=== PATIENT | female | born 1970 | race Caucasian/White ===

== ENCOUNTER 2020-01-29 19:10 | Emergency (ER) | payer BC, OTHER ==
[~2020-01-29] VITALS: Ht 162.6 cm; Wt 56.7 kg
--- NOTE | 2020-01-29 19:15 | NUR ---
ED Nurse Note: patient wheelchair to ED from home c/o fever x 3 days. highest temp 101.4F. Motrin administer 1630 at home current temp 98.1F oral. denies SOB, cough or chest pain. Assisted into bed; attached to monitor; vitals stable. ekg and imaging completed at bedside. all safety measures met.
[2020-01-29 19:30] VITALS: BP 95/54
--- NOTE | 2020-01-29 19:30 | NUR ---
ED Nurse Note: iv access established. blood, initial lactic, blood cultures, urine, covid swab collected; sent down to lab.
--- NOTE | 2020-01-29 19:35 | Emergency Room Report ---
History of Present Illness General Chief Complaint: Fever Source: Patient Present Illness HPI Disclaimer: Please note that this report is being documented using [email or web address] technology. This can lead to erroneous entry secondary to incorrect interpretation by the dictating instrument. 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 Symptoms present for the past 3 to 4 days. Reports intermittent fevers as high as 105 axillary that are responding to Tylenol Motrin but persist kidney return. 2 days ago she had several episodes of nausea and diaphoresis throughout the night however this is now resolved. Reports decreased appetite but is able to eat and drink. Denies headaches, visual changes, sore throat, nasal congestion, chest pain, shortness of breath, cough, any further abdominal pain or vomiting or diarrhea. Patient has no feeling below her umbilicus and therefore does not know whether or not she has dysuria but she has not noticed hematuria. Denies skin rash or breakdown. PMH: Reviewed PSH: Fixation of the thoracic spine Allergies: Reviewed Social Hx: Reviewed Allergies: Coded Allergies: No Known Allergies (Unverified , 01/29/20) COVID-19 Screening Contact w/high risk pt: No Experienced COVID-19 symptoms?: Yes COVID-19 Testing performed SEAMLESS TUBE DRAWER: No Review of Systems All Other Systems: negative except mentioned in HPI Physical Exam Vital Signs Date Time Temp Pulse Resp B/P (MAP) Pulse Ox O2 Delivery O2 Flow Rate FiO2 01/29/20 19:13 98.1 72 18 95/54 (68) 100 Room Air General: Awake and alert, no acute distress HEENT: NC/AT. EOMI. PERRLA. Moist mucous membranes. Cardiovascular: RRR. S1 and S2 normal. No murmur appreciated Resp: Normal work of breathing. No cough, wheezing or crackles appreciated Abdomen: Abdomen is soft, nondistended. Nontender Skin: Intact. No abrasions, laceration or rash over the exposed skin MSK: Normal tone and bulk. No spontaneous movement of the lower extremities. No obvious deformity. Neuro: Awake and alert. Mentating appropriately. Pleasant Medical Decision Making Diagnostic Impression: Primary Impression: UTI (urinary tract infection) ER Course Is a 49-year-old female presenting for evaluation of persistent fevers over the past 3 to 4 days. Differential includes was not limited to sepsis, viral syndrome, COVID-19 infection, pneumonia, UTI, intra-abdominal infection, yajaira ctrolyte abnormalities, dehydration among others. Broad labs and cultures were sent. Urinalysis concerning for acute urinary tract infection and the patient was treated with 1 dose IV Rocephin. She will be discharged on Bactrim. Remainder of labs are largely within normal limits aside from mildly elevated white count. Lactate within normal limits, COVID-19 negative. Chest x-ray shows no consolidation or other acute findings. She remains afebrile with stable vital signs and appropriate for outpatient follow-up. We will follow-up with PMD on an outpatient basis. Instructed to return with new or worsening symptoms. Family and patient understand and agree with this treatment plan. Laboratory Tests Test 01/29/20 19:30 01/29/20 20:00 White Blood Count 14.6 K/UL (4.8-10.8) H Red Blood Count 4.16 M/UL (4.20-5.40) L Hemoglobin 11.8 G/DL (12.0-16.0) L Hematocrit 36.4 % (37.0-47.0) L Mean Corpuscular Volume 87 FL (80-99) Mean Corpuscular Hemoglobin 28.3 PG (27.0-31.0) Mean Corpuscular Hemoglobin Concent 32.4 G/DL (32.0-36.0) Red Cell Distribution Width 13.6 % (11.6-14.8) Platelet Count 220 K/UL (150-450) Mean Platelet Volume 9.3 FL (6.5-10.1) Neutrophils (%) (Auto) % (45.0-75.0) Lymphocytes (%) (Auto) % (20.0-45.0) Monocytes (%) (Auto) % (1.0-10.0) Eosinophils (%) (Auto) % (0.0-3.0) Basophils (%) (Auto) % (0.0-2.0) Differential Total Cells Counted 100 Neutrophils % (Manual) 85 % (45-75) H Lymphocytes % (Manual) 10 % (20-45) L Monocytes % (Manual) 3 % (1-10) Eosinophils % (Manual) 0 % (0-3) Basophils % (Manual) 2 % (0-2) Band Neutrophils 0 % (0-8) Platelet Estimate Adequate Platelet Morphology Normal Red Blood Cell Morphology Normal Sodium Level 137 MMOL/L (136-145) Potassium Level 3.3 MMOL/L (3.5-5.1) L Chloride Level 102 MMOL/L (98-107) Carbon Dioxide Level 26 MMOL/L (21-32) Anion Gap 9 mmol/L (5-15) Blood Urea Nitrogen 12 mg/dL (7-18) Creatinine 0.9 MG/DL (0.55-1.30) Estimated Glomerular Filtration Rate > 60 mL/min (>60) Glucose Level 84 MG/DL (74-106) Lactic Acid Level 1.60 mmol/L (0.4-2.0) Calcium Level 9.0 MG/DL (8.5-10.1) Total Bilirubin 1.3 MG/DL (0.2-1.0) H Direct Bilirubin 0.3 MG/DL (0.0-0.3) Aspartate Amino Transferase (AST) 26 U/L (15-37) Alanine Aminotransferase (ALT) 21 U/L (12-78) Alkaline Phosphatase 90 U/L (46-116) Troponin I 0.000 ng/mL (0.000-0.056) Total Protein 7.0 G/DL (6.4-8.2) Albumin 2.9 G/DL (3.4-5.0) L Globulin 4.1 g/dL Albumin/Globulin Ratio 0.7 (1.0-2.7) L Lipase 62 U/L (73-393) L Urine Color Yellow Urine Appearance Cloudy Urine pH 5 (4.5-8.0) Urine Specific [place] 1.020 (1.005-1.035) Urine Protein 2+ (NEGATIVE) H Urine Glucose (UA) Negative (NEGATIVE) Urine Ketones 4+ (NEGATIVE) H Urine Blood 3+ (NEGATIVE) H Urine Nitrite Negative (NEGATIVE) Urine Bilirubin Negative (NEGATIVE) Urine Urobilinogen Normal MG/DL (0.0-1.0) Urine Leukocyte Esterase 3+ (NEGATIVE) H Urine RBC 5-10 /HPF (0 - 2) H Urine WBC 60-80 /HPF (0 - 2) H Urine Squamous Epithelial Cells Moderate /LPF (NONE/OCC) H Urine Bacteria Moderate /HPF (NONE) H Microbiology Date/Time Source Procedure Growth Status 01/29/20 19:30 Nasopharynx SARS-CoV-2 RdRp Gene Assay - Final Complete EKG Diagnostic Results Troponin ordered: Yes When was troponin ordered?: Jan 29, 2020 EKG Time: 19:24 Rate: normal Rhythm: NSR ST Segments: no acute changes Other Impression Sinus rhythm, normal axis, normal intervals, no ST segment changes. Rhythm Strip Diag. Results Rhythm Strip Time: 19:24 EP Interpretation: yes Rate: 70 Rhythm: NSR, no PVC's, no ectopy Chest X-Ray Diagnostic Results Chest X-Ray Diagnostic Results : Chest X-Ray Ordered: Yes # of Views/Limited/Complete: 1 View Indication: Other - fever Interpretation: no consolidation, no effusion, no pneumothorax, other - Spinal fixation hardware appears in place Impression: No acute disease Electronically Signed by: Electronically signed by Dr. Duran Olguin Last Vital Signs Date Time Temp Pulse Resp B/P (MAP) Pulse Ox O2 Delivery O2 Flow Rate FiO2 01/29/20 19:13 98.1 72 18 95/54 (68) 100 Room Air Disposition: HOME, SELF-CARE Condition: Stable Scripts Trimethoprim/Sulfamethoxazole 160/800* (BACTRIM DS TABLET*) 1 Each Tablet 1 TAB ORAL Q12H for 10 Days, #20 TAB 0 Refills Prov: Duran Olguin MD 01/29/20 Duran Olguin MD Jan 29, 2020 19:35
[2020-01-29 20:04] LABS: HEMATOCRIT 36.4 % (37.0-47.0); HEMOGLOBIN 11.8 G/DL (12.0-16.0); MEAN CORPUSCULAR VOLUME 87 FL (80-99); PLATELET COUNT 220 K/UL (150-450); RED BLOOD COUNT 4.16 M/UL (4.20-5.40); RED CELL DISTRIBUTION WIDTH 13.6 % (11.6-14.8); WHITE BLOOD COUNT 14.6 K/UL (4.8-10.8)
[2020-01-29 20:39] LABS: ALANINE AMINOTRANSFERASE 21 U/L (12-78); ALBUMIN 2.9 G/DL (3.4-5.0); ALBUMIN/GLOBULIN RATIO 0.7 (1.0-2.7); ALKALINE PHOSPHATASE 90 U/L (46-116); ANION GAP 9 mmol/L (5-15); ASPARTATE AMINO TRANSFERASE 26 U/L (15-37); BILIRUBIN,TOTAL 1.3 MG/DL (0.2-1.0); BLOOD UREA NITROGEN 12 mg/dL (7-18); CARBON DIOXIDE 26 MMOL/L (21-32); CHLORIDE 102 MMOL/L (98-107); CREATININE 0.9 MG/DL (0.55-1.30); POTASSIUM 3.3 MMOL/L (3.5-5.1); SODIUM 137 MMOL/L (136-145)
[2020-01-29 20:44] LABS: BILIRUBIN,DIRECT 0.3 MG/DL (0.0-0.3)
[2020-01-29 21:11] LABS: APPEARANCE,URINE CLOUDY; BILIRUBIN, URINE NEGATIVE (NEGATIVE); GLUCOSE, URINE (UA) NEGATIVE (NEGATIVE); KETONES,URINE 4+ (NEGATIVE); LEUKOCYTE ESTERASE ,URINE 3+ (NEGATIVE); NITRITE,URINE NEGATIVE (NEGATIVE); PH,URINE 5 (4.5-8.0); PROTEIN,URINE 2+ (NEGATIVE); UROBILINOGEN,URINE NORMAL MG/DL (0.0-1.0)
[2020-01-29 21:14] LABS: COLOR,URINE YELLOW
[2020-01-29] MEDS ORDERED: cefTRIAXone 1 GM in NS 55 ML IVPB ONE (21:30)
[2020-01-29] MEDS ORDERED: BACTRIM DS TAB1 EAC1 ORAL (21:40)
[2020-01-29 22:00] VITALS: BP 106/61
--- NOTE | 2020-01-29 22:15 | NUR ---
ER DISCHARGE NOTE: Patient is cleared to be discharged per ERMD, pt is aox4, on room air, with stable vital signs. pt was given dc and prescription instructions, pt was able to verbalize understanding, pt id band and iv site removed without complications. pt left via wheelchair accompanied by family member. pt took all belongings.
--- NOTE | 2020-01-30 06:20 | Diagnostic Imaging Report ---
EXAM: XR Chest, 1 View CLINICAL HISTORY: ABN LABS TECHNIQUE: Frontal view of the chest. COMPARISON: No relevant prior studies available. FINDINGS: Lungs: Unremarkable. No consolidation. Pleural space: Unremarkable. No pneumothorax. Heart: Unremarkable. No cardiomegaly. Mediastinum: Unremarkable. Bones/joints: Postsurgical changes of the thoracic spine. No obvious acute osseous abnormality. IMPRESSION: No acute cardiopulmonary disease.
== END 2020-01-29 22:15 | disposition home or self-care (01) ==
LOC: MERGE 19:38 → EEVIPCON 19:38 → EMR 19:38
DX: N39.0 Urinary tract infection, site not specified (principal); Z99.3 Dependence on wheelchair; G83.9 Paralytic syndrome, unspecified
CPT/HCPCS: 36415; 71045; 80053; 81003; 82248; 83605; 83690; 84484; 85007; 85025; 87040; 87086; 93005; 96365; 99284; J0696; U0002